=== PATIENT | female | born 1985 | race Two or more races ===

== ENCOUNTER 2024-12-26 11:39 | Emergency (ER) | payer BC ==
[~2024-12-26] VITALS: Ht 167.6 cm; Wt 70.3 kg
[2024-12-26] MEDS ORDERED: WELLBUTRIN XL300 MG PO (11:53)
[2024-12-26] MEDS ORDERED: SEROQUEL XR150 MG PO (11:54)
[2024-12-26] MEDS ORDERED: ZOLOFT50 MG PO (11:54)
[2024-12-26] MEDS ORDERED: 0.9 % SODIUM CHLORIDE 1,000 ML IV ONE (12:00)
[2024-12-26 13:10] LABS: HEMATOCRIT 39.1 % (36.0-45.00); HEMOGLOBIN 13.2 g/dL (12.0-15.00); MEAN CELL VOLUME 89.6 fL (80.00-100.00); MEAN CORPUSCULAR HEMOGLOBIN 30.2 pg (27.00-32.0); MEAN CORPUSCULAR HGB CONC 33.7 g/dl (32.0-36.0); PLATELET COUNT 163 K/uL (150-450); RED BLOOD COUNT 4.37 M/uL (4.00-6.00); RED CELL DISTRIBUTION WIDTH 12.8 % (11.5-14.5)
[2024-12-26 13:30] LABS: ALBUMIN 4.1 gm/dL (3.4-5.0); ALKALINE PHOSPHATASE 46 U/L (50-136); ALT/SGPT 18 U/L (12-78); ANION GAP 12 (10.0-20.0); AST/SGOT 12 U/L (15-37); BILIRUBIN TOTAL 0.38 mg/dL (0.3-1.2); BLOOD UREA NITROGEN 11 mg/dL (7-18); BUN CREA RATIO 11 (7.0-25.0); CALCIUM 9.5 mg/dL (8.5-10.1); CARBON DIOXIDE 25 mEq/L (21-32); CHLORIDE 107 mmol/L (98-107); CREATININE SERUM 0.99 mg/dL (0.55-1.02); GFR 63.11; GLOBULINA 3.2 G/DL (2.4-3.5); GLUCOSE FASTING 92 mg/dL (65-100); OSMOLALITY SERUM 278 MOSM/KG (275-295); PHOSPHOKINASE CREATININE 40 U/L (26-192); POTASSIUM 3.82 mEq/L (3.5-5.1); SODIUM 140 mmol/L (136-145); TOTAL PROTEIN 7.3 gm/dL (6.4-8.2)
[2024-12-26 13:31] LABS: HCG QUANTITATIVE < 1 mUI/mL (1-3)
[2024-12-26 15:09] LABS: URINE APPEARANCE Cloudy; URINE BILIRRUBIN Negative (NEGATIVE); URINE BLOOD Moderate; URINE COLOR Yellow; URINE GLUCOSE Negative (NEGATIVE); URINE KETONE Trace (NEGATIVE); URINE LEUKOCYTE Moderate; URINE NITRATE Negative; URINE PROTEIN Trace (NEGATIVE); URINE UROBILINOGEN 0.2 E.U./dl
[2024-12-26 15:34] LABS: URINE BACTERIA 9312 uL (0.0-1933); URINE CAST 0.29 uL (0.0-1.40); URINE EPITHELIAL CELLS 67.1 uL (0.0-38.8); URINE RBC 12.3 uL (0.0-20.8); URINE WBC 141.2 uL (0.0-23.2)
[2024-12-26 16:28] LABS: COCAINE NEGATIVE (NEGATIVE); METHADONE NEGATIVE (NEGATIVE); OPIATES NEGATIVE (NEGATIVE); THC ( Cannabinoids) NEGATIVE (NEGATIVE)
== END 2024-12-26 15:52 | disposition home or self-care (01) ==
LOC: ER 11:39
PROVIDERS: General Practice
DX: R55 Syncope and collapse (principal); E86.0 Dehydration